=== PATIENT | female | born 1955 | race Caucasian/White ===

== ENCOUNTER 2018-01-31 14:02 | Emergency (ER) | payer BC, MEDICARE ==
[2018-01-31 14:32] LABS: #Basophils 0.1 thou/uL (0.0-0.2); #Eosinphils 0.4 thou/uL (0.0-0.7); #Lymphocytes 2.3 thou/uL (1.20-3.40); #Monocytes 0.4 thou/uL (0.11-0.59); #Neutrophils 3.3 thou/uL (1.40-6.50); %Basophils 0.8 % (0.0-1.0); %Eosinophils 6.1 % (0.0-10.0); %Lymphocytes 35.3 % (21.0-51.0); %Monocytes 6.8 % (0.0-10.0); Hemoglobin 12.4 g/dL (12.0-16.0); Mean Corpuscular HGB CONC 35.6 g/dL (32.0-36.0); Mean Corpuscular Volume 98.3 fl (81.0-99.0); Mean Platelet Volume 8.6 fL (7.4-10.4); Platelet Count 224 thou/uL (130-400); RBC Distribution Width 11.6 % (11.5-14.5); Red Blood Cell (RBC) Count 3.53 mill/uL (4.20-5.40); White Blood Cell (WBC) Count 6.5 thou/uL (4.8-10.8)
[2018-01-31 14:57] LABS: ALT (SGPT) 14 U/L (8-55); AST (SGOT) 19 U/L (5-34); Albumin 4.5 g/dL (3.4-4.8); Alkaline Phosphatase 85 U/L (40-150); Anion Gap 12 mmol/L (10-20); BUN (Urea Nitrogen) 27 mg/dL (9.8-20.1); Bilirubin, Total 0.5 mg/dL (0.2-1.2); Calc. Creatinine Clearance 0 mL/min (70-130); Calcium 9.8 mg/dL (7.8-10.44); Carbon Dioxide 26 mmol/L (23-31); Chloride 106 mmol/L (98-107); Estimated GFR-MDRD 53; Globulin 2.7 g/dL (2.4-3.5); Glucose 91 mg/dL (80-115); Protein, Total 7.2 g/dL (6.0-8.3); Sodium 141 mmol/L (136-145)
[2018-01-31 15:01] LABS: CKMB 1.6 ng/mL (0-6.6); Troponin I Less than 0.010 ng/mL (< 0.028)
--- NOTE | 2018-01-31 15:01 | RAD ---
PORTABLE UPRIGHT FRONTAL CHEST RADIOGRAPH: Date: 01-31-18 Comparison: None. History: Shortness of breath. Chest discomfort. Chest heaviness. FINDINGS: Stent material overlies the left neck. The lungs appear hyperinflated with mild diffuse increased kiara ear interstitial density noted bilaterally. There is atherosclerotic calcification of the aortic arch . No pneumothorax, pleural fluid, focal consolidation or alveolar edema. IMPRESSION: Interstitial prominence and pulmonary hyperinflation. POS: [facility]
[2018-01-31] MEDS ORDERED: Potassium Chloride 20 MEQ TAB ONE (16:09)
== END 2018-01-31 16:52 | disposition home or self-care (01) ==
LOC: ERS 14:02
DX: R07.89 Other chest pain (principal); E78.5 Hyperlipidemia, unspecified; I10 Essential (primary) hypertension; I25.2 Old myocardial infarction; F17.210 Nicotine dependence, cigarettes, uncomplicated
CPT/HCPCS: 71045; 80053; 82553; 84484; 85025; 85379; 93005

== ENCOUNTER 2018-06-07 08:13 | Outpatient (CLI) | payer BC ==
--- NOTE | 2018-06-07 11:25 | MRI ---
MRI LUMBAR SPINE WITHOUT CONTRAST: Date: 06/07/18 HISTORY: M54.5 low back pain. COMPARISON: None. FINDINGS: The aortic contour is nonaneurysmal. No hydroureteronephrosis. No retroperitoneal adenopathy. Paraspinal musculature is symmetric. No marrow infiltrative process. The conus medullaris terminates at the superior end plate of L1. There is a lumbosacral transitional vertebra with enlarged left L5 transverse process and anomalous articulation of the sacrum. This will be determined as L5 for the purposes of this examination. Levels are as follows: T12-L1: There is a left paracentral and subforaminal posterior disc osteophyte complex. No significant neural foraminal or spinal canal narrowing. L1-2: Mild disc desiccation. Small broad based posterior disc osteophyte complex. Minimal effacement of the ventral CSF space. No significant neural foraminal or spinal canal narrowing. L2-3: Moderate disc desiccation. There is a right subforaminal lateral recess posterior disc osteophyte com plex causing mild right-sided neural foraminal narrowing. Moderate facet arthrosis. There is also a l eft subforaminal posterior disc osteophyte complex causing moderate left-sided neural foraminal narro wing. L3-4: Moderate disc desiccation. There is a broad based posterior disc osteophyte complex. Mild bilateral n eural foraminal narrowing. Moderate facet arthrosis. L4-5: There is anterolisthesis, predominantly right-sided, 4.0 mm. No significant left-sided anterolisthesi s is present. There is asymmetric right, much worse than left, facet arthropathy. Moderate to severe right-sided neural foraminal narrowing. Mild left-sided neural foraminal narrowing. Severe disc desic cation and near complete height loss. L5-S1: There is moderate to severe right-sided and moderate left-sided facet arthropathy. Mild disc desiccat ion. No significant neural foraminal or spinal canal narrowing. IMPRESSION: 1. Right 2A lumbosacral transitional vertebra. 2. Degenerative 5.0 mm right-sided L4 over L5 anterolisthesis due to asymmetric severe facet arthrop athy. There is subsequent moderate to severe right-sided neural foraminal narrowing with abutment of the exiting traversing nerve roots. The left side of the L4-5 disc space is without significant anter olisthesis. POS: [facility]
== END 2018-06-07 08:14 | disposition home or self-care (01) ==
LOC: MRI 08:13
PROVIDERS: ATTEND Neurological Surgery
DX: M54.5 Low back pain (principal); M43.16 Spondylolisthesis, lumbar region; M46.96 Unspecified inflammatory spondylopathy, lumbar region; M99.83 Other biomechanical lesions of lumbar region
CPT/HCPCS: 72148

== ENCOUNTER 2018-07-28 19:35 | Emergency (ER) | payer BC ==
[2018-07-28] MEDS ORDERED: Mag-Al 1200 mg/1200 mg/30 ML UDCUP ONE (20:04)
[2018-07-28] MEDS ORDERED: Lidocaine Viscous Sol 2% 15 ml UD Cup ONE (20:04)
--- NOTE | 2018-07-28 20:54 | RAD ---
CHEST ONE VIEW: HISTORY: A 63-year-old female with a history of syncope, dizziness, and sweating. Previous heart cath. FINDINGS: Heart size is normal. Mild increased linear and interstitial markings bilaterally, stable from prior study. No confluent pneumonia, overt edema, or pleural effusion. IMPRESSION: 1. Mild stable chronic changes. 2. No pneumonia, edema, or other acute process. 3. Atherosclerosis of the aorta. POS: [facility]
[2018-07-28 21:03] LABS: Hemoglobin 10.6 g/dL (12.0-16.0); Mean Corpuscular HGB CONC 34.2 g/dL (32.0-36.0); Mean Corpuscular Hemoglobin 33.4 pg (27.0-31.0); Mean Corpuscular Volume 97.6 fL (78.0-98.0); Mean Platelet Volume 8.6 fL (7.4-10.4); Platelet Count 254 thou/uL (130-400); RBC Distribution Width 11.3 % (11.5-14.5); Red Blood Cell (RBC) Count 3.17 mill/uL (4.20-5.40); White Blood Cell (WBC) Count 10.9 thou/uL (4.8-10.8)
[2018-07-28 21:04] LABS: #Basophils 0.1 thou/uL (0.0-0.2); #Eosinphils 0.3 thou/uL (0.0-0.7); #Lymphocytes 1.7 thou/uL (1.20-3.40); #Monocytes 0.6 thou/uL (0.11-0.59); #Neutrophils 8.2 thou/uL (1.40-6.50); %Basophils 0.5 % (0.0-1.0); %Eosinophils 3.1 % (0.0-10.0); %Lymphocytes 15.2 % (21.0-51.0); %Monocytes 5.4 % (0.0-10.0); %Neutrophils 75.8 % (42.0-75.0)
[2018-07-28 21:25] LABS: ALT (SGPT) 15 U/L (8-55); AST (SGOT) 19 U/L (5-34); Albumin 3.8 g/dL (3.4-4.8); Alkaline Phosphatase 84 U/L (40-150); Anion Gap 14 mmol/L (10-20); BUN (Urea Nitrogen) 29 mg/dL (9.8-20.1); Bilirubin, Total 0.2 mg/dL (0.2-1.2); Calc. Creatinine Clearance 0 mL/min (70-130); Calcium 8.2 mg/dL (7.8-10.44); Carbon Dioxide 18 mmol/L (23-31); Chloride 108 mmol/L (98-107); Estimated GFR-MDRD 40; Globulin 2.8 g/dL (2.4-3.5); Glucose 114 mg/dL (80-115); Magnesium 2.1 mg/dL (1.6-2.6); Potassium 3.7 mmol/L (3.5-5.1); Protein, Total 6.6 g/dL (6.0-8.3); Sodium 136 mmol/L (136-145)
[2018-07-28 21:28] LABS: Troponin I Less than 0.010 ng/mL (< 0.028)
== END 2018-07-28 22:58 | disposition home or self-care (01) ==
LOC: ERS 19:35
DX: R55 Syncope and collapse (principal); E78.5 Hyperlipidemia, unspecified; I10 Essential (primary) hypertension; I25.2 Old myocardial infarction; F17.210 Nicotine dependence, cigarettes, uncomplicated; Z79.82 Long term (current) use of aspirin; Z79.899 Other long term (current) drug therapy
CPT/HCPCS: 36415; 71045; 80053; 83735; 83880; 84484; 85025; 93005; 94760

== ENCOUNTER 2019-04-18 07:46 | Outpatient (CLI) | payer BC ==
--- NOTE | 2019-04-18 09:17 | CT ---
EXAM: CT ABDOMEN AND PELVIS HISTORY: Abdominal pain, left-sided. A left-sided lump found in November. COMPARISON: None. Procedure: Multiple contiguous axial images were obtained and a CT of the abdomen and pelvis with IV contrast. C oronal reformats were performed. FINDINGS: Lower Chest: within normal limits. Vessels: Normal caliber aorta. Atherosclerotic disease is noted. Heart: Normal heart size. No significant pericardial fluid Abdomen: Portal vein:Patent Gallbladder: No calcified gallstones. Normal caliber wall. Liver: within normal limits. Pancreas: within normal limits. Spleen: within normal limits. Adrenals: Right adrenal gland is unremarkable. 0.8 cm left adrenal nodule. Kidneys: Symmetric enhancement kidneys. Nonobstructing 1 to 2 mm calculi in the left renal pelvis. No evidence of left-sided obstructive uropathy. No evidence of right-sided obstructive uropathy. Peritoneum: No ascites or free air, no fluid collection. Bowel: Normal caliber. Mesentery and Retroperitoneum: No enlarged mesenteric or retroperitoneal lymph nodes. Abdominal Wall: Umbilical hernia containing mesenteric fat is noted. Pelvis: Reproductive Organs: Surgically absent uterus Pelvis: within normal limits. Bladder: within normal limits. Bones: There are no lytic or blastic lesions in the osseous structures. Pseudoarthrosis of the left L 5 ala with the sacrum. IMPRESSION: 1. No evidence of acute intraabdominal\pelvic abnormality. 2. Nonobstructing left intrarenal calculi 3. Left adrenal nodule as described above. Nonemergent adrenal mass protocol CT or abdomen MRI perfor med.
== END 2019-04-18 07:47 | disposition home or self-care (01) ==
LOC: CT 07:46
PROVIDERS: ATTEND Family Medicine
DX: R10.84 Generalized abdominal pain (principal); N20.0 Calculus of kidney; E27.8 Other specified disorders of adrenal gland
CPT/HCPCS: 74177

== ENCOUNTER 2019-07-25 10:57 | Emergency (ER) | payer OTHER ==
--- NOTE | 2019-07-25 11:32 | RAD ---
Exam: Chest one view HISTORY:Chest pain Comparison: 07/28/2018 FINDINGS: Lungs: Diffuse interstitial prominence bilaterally Cardiac silhouette:Stable Pulmonary vessels: Normal Pleural Spaces: Clear Pneumothorax: None Osseous abnormalities: None of acuity. IMPRESSION: Diffuse interstitial opacities which may be on the basis of interstitial lung disease, or edema. Correlate clinically.
[2019-07-25 11:33] LABS: #Basophils 0.1 thou/uL (0.0-0.2); #Eosinphils 0.1 thou/uL (0.0-0.7); #Lymphocytes 1.3 thou/uL (1.20-3.40); #Monocytes 0.4 thou/uL (0.11-0.59); #Neutrophils 4.8 thou/uL (1.40-6.50); %Basophils 0.8 % (0.0-1.0); %Eosinophils 1.2 % (0.0-10.0); %Lymphocytes 20.2 % (21.0-51.0); %Monocytes 5.3 % (0.0-10.0); %Neutrophils 72.5 % (42.0-75.0); Hemoglobin 12.4 g/dL (12.0-16.0); Mean Corpuscular HGB CONC 34.4 g/dL (32.0-36.0); Mean Corpuscular Hemoglobin 34.1 pg (27.0-31.0); Mean Corpuscular Volume 99.1 fL (78.0-98.0); Mean Platelet Volume 8.6 fL (7.4-10.4); Platelet Count 259 thou/uL (130-400); RBC Distribution Width 12.5 % (11.5-14.5); Red Blood Cell (RBC) Count 3.64 mill/uL (4.20-5.40); White Blood Cell (WBC) Count 6.6 thou/uL (4.8-10.8)
[2019-07-25 12:06] LABS: ALT (SGPT) 15 U/L (8-55); AST (SGOT) 18 U/L (5-34); Albumin 4.5 g/dL (3.4-4.8); Alkaline Phosphatase 84 U/L (40-110); Anion Gap 13 mmol/L (10-20); BUN (Urea Nitrogen) 14 mg/dL (9.8-20.1); Bilirubin, Total 0.3 mg/dL (0.2-1.2); Calc. Creatinine Clearance 0 mL/min (70-130); Calcium 9.3 mg/dL (7.8-10.44); Carbon Dioxide 26 mmol/L (23-31); Chloride 97 mmol/L (98-107); Estimated GFR-MDRD 71; Globulin 2.9 g/dL (2.4-3.5); Glucose 95 mg/dL (80-115); Lipase 17 U/L (8-78); Potassium 4.1 mmol/L (3.5-5.1); Protein, Total 7.4 g/dL (6.0-8.3); Sodium 132 mmol/L (136-145)
[2019-07-25 14:08] LABS: Troponin I Less than 0.010 ng/mL (< 0.028)
== END 2019-07-25 15:56 | disposition home or self-care (01) ==
LOC: ERS 10:57
DX: R07.9 Chest pain, unspecified (principal); E78.00 Pure hypercholesterolemia, unspecified; I25.2 Old myocardial infarction; I10 Essential (primary) hypertension; Z79.899 Other long term (current) drug therapy
CPT/HCPCS: 36415; 71045; 80053; 83690; 84484; 85025; 93005

== ENCOUNTER 2020-06-03 09:25 | Outpatient (CLI) | payer OTHER ==
--- NOTE | 2020-06-03 10:27 | MMO ---
Bilateral MAMMO Bilat Screen [facility]. CLINICAL HISTORY: Patient is 65 years old and is seen for screening. The patient has no family history of breast cancer. The patient has no personal history of cancer. The patient has a history of bilateral Implants. VIEWS: The views performed were: bilateral craniocaudal with tomosynthesis; bilateral mediolateral oblique with tomosynthesis; and bilateral Implant displaced. FILMS COMPARED: The present examination has been compared to a prior imaging study performed at [facility] on 04/05/2018. This study has been interpreted with the assistance of computer-aided detection. MAMMOGRAM FINDINGS: There are scattered fibroglandular densities. There are stable benign appearing calcifications seen in both breasts. There are no suspicious masses, suspicious calcifications, or new areas of architectural distortion. IMPRESSION: THERE IS NO MAMMOGRAPHIC EVIDENCE OF MALIGNANCY. A ROUTINE FOLLOW-UP MAMMOGRAM IN 1 YEAR IS RECOMMENDED. THE RESULTS OF THIS EXAM WERE SENT TO THE PATIENT. ACR BI-RADS Category 2 - Benign finding MAMMOGRAPHY NOTE: 1. A negative mammogram report should not delay a biopsy if a dominant of clinically suspicious mass is present. 2. Approximately 10% to 15% of breast cancers are not detected by mammography. 3. Adenosis and dense breasts may obscure an underlying neoplasm. Reported by: RICHARD DENIS MD Electonically Signed: [id number]
--- NOTE | 2020-06-03 13:43 | BD ---
DEXA BONE DENSITY STUDY: HISTORY: Postmenopausal. FINDINGS: Lumbar Spine: BMD (g/cm2) L1 0.986 T-Score: +0.0 L2 1.055 T-Score: +0.2 L3 1.049 T-Score: -0.3 L4 1.195 T-Score: +1.2 L1-L4 1.078 T-Score: +0.3 Femoral Neck: 0.555 T-Score: -2.6 Total Femur: 0.761 T-Score: -1.5 Impression: Osteoporosis of the left femoral neck. Normal bone mineral density of the lumbar spine. POS: [facility]
== END 2020-06-03 09:26 | disposition home or self-care (01) ==
LOC: BICMAMMO 09:25
PROVIDERS: ATTEND Registered Nurse
DX: Z12.31 Encounter for screening mammogram for malignant neoplasm of breast (principal); Z78.0 Asymptomatic menopausal state; M81.0 Age-related osteoporosis without current pathological fracture; Z98.82 Breast implant status
CPT/HCPCS: 77063; 77067; 77080

== ENCOUNTER 2020-12-21 13:12 | Emergency (ER) | payer BC, MEDICARE ==
[2020-12-21 13:49] LABS: #Eosinphils 0.2 thou/uL (0.0-0.7); #Lymphocytes 2.1 thou/uL (1.20-3.40); #Monocytes 0.4 thou/uL (0.11-0.59); #Neutrophils 3.3 thou/uL (1.40-6.50); %Basophils 0.8 % (0.0-1.0); %Lymphocytes 33.9 % (21.0-51.0); %Neutrophils 54.3 % (42.0-75.0); Hemoglobin 12.8 g/dL (12.0-16.0); Mean Corpuscular HGB CONC 33.7 g/dL (32.0-36.0); Mean Corpuscular Hemoglobin 33.4 pg (27.0-31.0); Mean Corpuscular Volume 99.2 fL (78.0-98.0); Mean Platelet Volume 8.4 fL (7.4-10.4); Platelet Count 278 thou/uL (130-400); RBC Distribution Width 12.2 % (11.5-14.5); Red Blood Cell (RBC) Count 3.82 mill/uL (4.20-5.40); White Blood Cell (WBC) Count 6.1 thou/uL (4.8-10.8)
[2020-12-21 14:11] LABS: ALT (SGPT) 16 U/L (8-55); AST (SGOT) 17 U/L (5-34); Albumin 4.4 g/dL (3.4-4.8); Alkaline Phosphatase 92 U/L (40-110); Anion Gap 16 mmol/L (10-20); BUN (Urea Nitrogen) 14 mg/dL (9.8-20.1); Bilirubin, Total 0.4 mg/dL (0.2-1.2); Calc. Creatinine Clearance 0 mL/min (70-130); Calcium 9.9 mg/dL (7.8-10.44); Carbon Dioxide 24 mmol/L (23-31); Chloride 100 mmol/L (98-107); Glucose 100 mg/dL (80-115); Potassium 3.7 mmol/L (3.5-5.1); Protein, Total 7.4 g/dL (5.8-8.1); Sodium 136 mmol/L (136-145)
[2020-12-21] MEDS ORDERED: Aspirin Chewable 81 MG TAB ONE (14:48)
== END 2020-12-21 17:51 | disposition left against medical advice (07) ==
LOC: ERS 13:12
DX: R07.9 Chest pain, unspecified (principal); I25.10 Atherosclerotic heart disease of native coronary artery without angina pectoris; F17.210 Nicotine dependence, cigarettes, uncomplicated; I25.2 Old myocardial infarction; E78.5 Hyperlipidemia, unspecified; E78.00 Pure hypercholesterolemia, unspecified; I10 Essential (primary) hypertension; Z79.82 Long term (current) use of aspirin; Z79.899 Other long term (current) drug therapy
CPT/HCPCS: 71045; 80053; 84484; 85025; 93005; 94760

== ENCOUNTER 2021-01-15 21:35 | Inpatient (IN) | payer BC, MEDICARE ==
[~2021-01-15 21:35] MED LIST: Iopamidol-370 76% 500 ML 1 ML ONE
[2021-01-15 21:59] LABS: #Eosinphils 0.1 thou/uL (0.0-0.7); #Lymphocytes 1.6 thou/uL (1.20-3.40); #Monocytes 0.4 thou/uL (0.11-0.59); #Neutrophils 4.7 thou/uL (1.40-6.50); %Basophils 0.6 % (0.0-1.0); %Eosinophils 1.3 % (0.0-10.0); %Monocytes 6.1 % (0.0-10.0); Mean Corpuscular HGB CONC 34.9 g/dL (32.0-36.0); Mean Corpuscular Hemoglobin 33.8 pg (27.0-31.0); Mean Corpuscular Volume 96.8 fL (78.0-98.0); Mean Platelet Volume 8.5 fL (7.4-10.4); Platelet Count 237 thou/uL (130-400); RBC Distribution Width 11.8 % (11.5-14.5); Red Blood Cell (RBC) Count 3.55 mill/uL (4.20-5.40); White Blood Cell (WBC) Count 6.8 thou/uL (4.8-10.8)
[2021-01-15] MEDS ORDERED: Ondansetron PF 4 MG/2 ML Vial ONE ×2 (22:10→23:47)
[2021-01-15] MEDS ORDERED: Ketorolac Tromethamine 30 MG/ML VIAL ONE (22:10)
[2021-01-15 22:20] LABS: ALT (SGPT) 15 U/L (8-55); AST (SGOT) 16 U/L (5-34); Albumin 4.1 g/dL (3.4-4.8); Alkaline Phosphatase 85 U/L (40-110); Anion Gap 16 mmol/L (10-20); BUN (Urea Nitrogen) 9 mg/dL (9.8-20.1); Bilirubin, Total 0.5 mg/dL (0.2-1.2); Calc. Creatinine Clearance 0 mL/min (70-130); Carbon Dioxide 22 mmol/L (23-31); Chloride 90 mmol/L (98-107); Globulin 2.7 g/dL (2.4-3.5); Glucose 118 mg/dL (80-115); Lipase 14 U/L (8-78); Potassium 3.3 mmol/L (3.5-5.1); Protein, Total 6.8 g/dL (5.8-8.1); Sodium 125 mmol/L (136-145)
[2021-01-15] MEDS ORDERED: Morphine 4 MG/ML VIAL ONE ×2 (22:37→23:44)
[2021-01-15] MEDS ORDERED: cefTRIAXone\\ROCEPHIN 2 GM VIAL ONE (23:16)
[2021-01-15] MEDS ORDERED: NS 0.9% w/ 40 MEQ KCL 1,000 ML IV SCH (23:45)
[2021-01-15] MEDS ORDERED: Ondansetron PF 4 MG/2 ML Vial IVP PRN (23:49)
[2021-01-15] MEDS ORDERED: Bisacodyl 10 MG SUPP PR PRN (23:49)
[2021-01-15] MEDS ORDERED: Acetaminophen 325 MG TAB PO PRN (23:49)
[2021-01-16] MEDS ORDERED: Morphine 2 MG/ML VIAL SLOW IVP PRN (00:01)
[2021-01-16] MEDS ORDERED: hydrALAZINE 20 MG/ML VIAL SLOW IVP PRN (00:01)
[2021-01-16 00:27] LABS: Bacteria/HPF None Seen HPF (None Seen); Bilirubin Negative (Negative); Blood, Urine Negative (Negative); Clarity Clear (Clear); Glucose, Urine (Dipstick) Normal (Negative); Ketone, Urine 10 mg/dL (Negative); Leukocyte Negative Leu/uL (Negative); Nitrite Negative (Negative); Protein, Urine (Dipstick) Negative (Neg-Trace); RBC/HPF 0-3 HPF (0-3); Specific Gravity, Urine 1.033 (1.002-1.036); Squamous Epithelial None Seen HPF (0-3); Urobilinogen Normal mg/dL (Less than 2); WBC/HPF 0-3 HPF (0-3); pH, Urine 6.5 (5.0-9.0)
[2021-01-16 01:16] VITALS: BMI 26.4
[2021-01-16] MEDS: HYDROcodone/Acetaminophen 5/325 mg Tablet PO PRN ×3 (01:22→16:31)
[2021-01-16] MEDS: Nicotine 14 MG PATCH TD SCH (01:23)
[2021-01-16 01:24] LABS: Hemoglobin 11.2 g/dL (12.0-16.0); Platelet Count 229 thou/uL (130-400)
[2021-01-16 01:40] LABS: Lactic Acid 0.7 mmol/L (0.5-2.2)
[2021-01-16 01:43] LABS: Potassium, Urine 45.9 mmol/L
[2021-01-16 03:16] LABS: SARS-CoV-2 NAA Rapid Test Not Detected (NotDetected)
[2021-01-16 06:32] LABS: ALT (SGPT) 13 U/L (8-55); AST (SGOT) 15 U/L (5-34); Albumin 3.6 g/dL (3.4-4.8); Alkaline Phosphatase 74 U/L (40-110); Anion Gap 13 mmol/L (10-20); BUN (Urea Nitrogen) 8 mg/dL (9.8-20.1); Bilirubin, Total 0.3 mg/dL (0.2-1.2); Calc. Creatinine Clearance 71 mL/min (70-130); Calcium 8.2 mg/dL (7.8-10.44); Carbon Dioxide 24 mmol/L (23-31); Chloride 95 mmol/L (98-107); Globulin 2.4 g/dL (2.4-3.5); Glucose 102 mg/dL (80-115); Potassium 3.9 mmol/L (3.5-5.1); Sodium 128 mmol/L (136-145)
[2021-01-16 06:35] LABS: Hemoglobin 11.4 g/dL (12.0-16.0); Platelet Count 243 thou/uL (130-400)
[2021-01-16] MEDS: Heparin 10,000 UNITS/ 10 ML VIAL SLOW IVP SCH ×2 (07:19→20:06)
[2021-01-16] MEDS: Heparin 25,000 units/D5W 500 ML IVPB SCH (07:20)
[2021-01-16] MEDS: Morphine 4 MG/ML VIAL SLOW IVP PRN ×2 (07:31→12:27)
[2021-01-16] MEDS ORDERED: Enoxaparin Sodium 40 MG/0.4 ML SYRINGE SC SCH (09:00)
[2021-01-16 09:01] LABS: Magnesium 1.7 mg/dL (1.6-2.6); Phosphorus 3.5 mg/dL (2.3-4.7)
[2021-01-16] MEDS ORDERED: Magnesium 2 GM/50 ML 2 GM in Premix Bag 1 BAG IVPB SCH (09:45)
[2021-01-16] MEDS ORDERED: Tolvaptan 15 MG TAB PO SCH (11:30)
[2021-01-16] MEDS ORDERED: TOLVAPTAN 30 MG TAB PO SCH (12:15)
[2021-01-16 14:25] LABS: Lactic Acid 0.6 mmol/L (0.5-2.2)
[2021-01-16 14:30] LABS: Anion Gap 12 mmol/L (10-20); BUN (Urea Nitrogen) 7 mg/dL (9.8-20.1); Calc. Creatinine Clearance 80 mL/min (70-130); Calcium 8.5 mg/dL (7.8-10.44); Carbon Dioxide 24 mmol/L (23-31); Chloride 99 mmol/L (98-107); Glucose 94 mg/dL (80-115); Potassium 3.5 mmol/L (3.5-5.1); Sodium 131 mmol/L (136-145)
[2021-01-16] MEDS ORDERED: Morphine 4 MG/ML VIAL SLOW IVP PRN (14:58)
[2021-01-16] MEDS ORDERED: Lisinopril 20 MG TAB PO SCH (17:00)
[2021-01-16] MEDS ORDERED: Aspirin 325 mg Enteric Coated Tablet PO SCH (17:00)
[2021-01-16] MEDS ORDERED: Aspirin 81 mg Enteric Coated Tablet PO SCH (17:00)
[2021-01-16] MEDS ORDERED: D5 0.9% NS w/ 20 mEq KCl 1,000 ML IV SCH (17:00)
[2021-01-16] MEDS ORDERED: Morphine 4 MG/ML VIAL SLOW IVP SCH (17:15)
[2021-01-16] MEDS: Piperacillin/Tazobactam 3.375 GM in Sodium Chloride 0.9% 100 ML IVPB SCH ×2 (17:25→23:38)
[2021-01-16] MEDS ORDERED: Polyethylene Glycol 3350 17 GM Packet PO SCH (18:00)
[2021-01-16] MEDS ORDERED: Fentanyl CADD 100 ML IVPB SCH (18:30)
[2021-01-16] MEDS ORDERED: NS 0.9% w/ 20 MEQ KCL 1,000 ML/1,000 ML BAG IV SCH (19:00)
[2021-01-16 19:10] LABS: Anion Gap 15 mmol/L (10-20); BUN (Urea Nitrogen) 6 mg/dL (9.8-20.1); Calc. Creatinine Clearance 80 mL/min (70-130); Calcium 9.1 mg/dL (7.8-10.44); Carbon Dioxide 21 mmol/L (23-31); Chloride 103 mmol/L (98-107); Glucose 110 mg/dL (80-115); Potassium 3.5 mmol/L (3.5-5.1); Sodium 135 mmol/L (136-145)
[2021-01-16 19:15] LABS: Troponin I 0.011 ng/mL (< 0.028)
[2021-01-16] MEDS: Pantoprazole 40 MG VIAL IVP SCH (20:56)
[2021-01-16] MEDS: Rosuvastatin 10 MG TAB PO SCH (20:56)
[2021-01-17 02:31] LABS: #Basophils 0.1 thou/uL (0.0-0.2); #Eosinphils 0.1 thou/uL (0.0-0.7); #Lymphocytes 2.6 thou/uL (1.20-3.40); #Monocytes 0.5 thou/uL (0.11-0.59); #Neutrophils 3.6 thou/uL (1.40-6.50); %Basophils 1.2 % (0.0-1.0); %Eosinophils 1.5 % (0.0-10.0); %Lymphocytes 37.9 % (21.0-51.0); %Monocytes 6.6 % (0.0-10.0); %Neutrophils 52.9 % (42.0-75.0); Hemoglobin 11.7 g/dL (12.0-16.0); Mean Corpuscular HGB CONC 35.9 g/dL (32.0-36.0); Mean Corpuscular Hemoglobin 35.6 pg (27.0-31.0); Mean Corpuscular Volume 99.1 fL (78.0-98.0); Mean Platelet Volume 8.7 fL (7.4-10.4); Platelet Count 243 thou/uL (130-400); RBC Distribution Width 12.2 % (11.5-14.5); Red Blood Cell (RBC) Count 3.29 mill/uL (4.20-5.40); White Blood Cell (WBC) Count 6.9 thou/uL (4.8-10.8)
[2021-01-17] MEDS: Nicotine 14 MG PATCH TD SCH ×2 (02:59→23:26)
[2021-01-17 03:02] LABS: Lactic Acid 0.9 mmol/L (0.5-2.2)
[2021-01-17 03:06] LABS: ALT (SGPT) 11 U/L (8-55); AST (SGOT) 15 U/L (5-34); Albumin 3.6 g/dL (3.4-4.8); Alkaline Phosphatase 79 U/L (40-110); Anion Gap 12 mmol/L (10-20); BUN (Urea Nitrogen) 6 mg/dL (9.8-20.1); Bilirubin, Total 0.3 mg/dL (0.2-1.2); Calc. Creatinine Clearance 74 mL/min (70-130); Calcium 8.7 mg/dL (7.8-10.44); Carbon Dioxide 24 mmol/L (23-31); Chloride 107 mmol/L (98-107); Globulin 2.2 g/dL (2.4-3.5); Glucose 100 mg/dL (80-115); Protein, Total 5.8 g/dL (5.8-8.1); Sodium 139 mmol/L (136-145)
[2021-01-17] MEDS: Piperacillin/Tazobactam 3.375 GM in Sodium Chloride 0.9% 100 ML IVPB SCH ×4 (05:33→23:25)
[2021-01-17] MEDS: Pantoprazole 40 MG VIAL IVP SCH ×2 (09:35→20:57)
[2021-01-17] MEDS: Saccharomyces boulardii 250 MG CAP PO SCH (09:35)
[2021-01-17] MEDS: Lisinopril 20 MG TAB PO SCH (09:35)
[2021-01-17] MEDS: Heparin 25,000 units/D5W 500 ML IVPB SCH (10:25)
[2021-01-17] MEDS: Heparin 10,000 UNITS/ 10 ML VIAL SLOW IVP SCH (11:45)
[2021-01-17] MEDS: Aspirin 81 mg Enteric Coated Tablet PO SCH (20:57)
[2021-01-17] MEDS: Rosuvastatin 10 MG TAB PO SCH (20:57)
[2021-01-17] MEDS ORDERED: Aspirin 325 mg Enteric Coated Tablet PO SCH (21:00)
[2021-01-18 00:38] LABS: Hemoglobin 10.4 g/dL (12.0-16.0); Platelet Count 222 thou/uL (130-400)
[2021-01-18] MEDS: Piperacillin/Tazobactam 3.375 GM in Sodium Chloride 0.9% 100 ML IVPB SCH ×4 (04:45→23:39)
[2021-01-18 05:00] LABS: #Eosinphils 0.2 thou/uL (0.0-0.7); #Lymphocytes 2.6 thou/uL (1.20-3.40); #Monocytes 0.6 thou/uL (0.11-0.59); #Neutrophils 3.2 thou/uL (1.40-6.50); %Basophils 0.5 % (0.0-1.0); %Eosinophils 3.2 % (0.0-10.0); %Lymphocytes 38.8 % (21.0-51.0); %Monocytes 9.4 % (0.0-10.0); %Neutrophils 48.1 % (42.0-75.0); Hemoglobin 10.9 g/dL (12.0-16.0); Mean Corpuscular HGB CONC 32.7 g/dL (32.0-36.0); Mean Corpuscular Hemoglobin 32.4 pg (27.0-31.0); Mean Platelet Volume 9.1 fL (7.4-10.4); Platelet Count 228 thou/uL (130-400); RBC Distribution Width 12.3 % (11.5-14.5); Red Blood Cell (RBC) Count 3.38 mill/uL (4.20-5.40); White Blood Cell (WBC) Count 6.6 thou/uL (4.8-10.8)
[2021-01-18 05:23] LABS: ALT (SGPT) 10 U/L (8-55); AST (SGOT) 15 U/L (5-34); Albumin 3.6 g/dL (3.4-4.8); Alkaline Phosphatase 63 U/L (40-110); Anion Gap 11 mmol/L (10-20); BUN (Urea Nitrogen) 6 mg/dL (9.8-20.1); Bilirubin, Total 0.4 mg/dL (0.2-1.2); Calc. Creatinine Clearance 77 mL/min (70-130); Calcium 8.9 mg/dL (7.8-10.44); Carbon Dioxide 25 mmol/L (23-31); Chloride 105 mmol/L (98-107); Globulin 2.2 g/dL (2.4-3.5); Glucose 91 mg/dL (80-115); Potassium 3.8 mmol/L (3.5-5.1); Protein, Total 5.8 g/dL (5.8-8.1); Sodium 137 mmol/L (136-145)
[2021-01-18] MEDS: Saccharomyces boulardii 250 MG CAP PO SCH (07:51)
[2021-01-18] MEDS: Lisinopril 20 MG TAB PO SCH (07:51)
[2021-01-18] MEDS: Pantoprazole 40 MG VIAL IVP SCH ×2 (07:52→20:36)
[2021-01-18] MEDS: HYDROcodone/Acetaminophen 5/325 mg Tablet PO SCH ×3 (12:02→23:39)
[2021-01-18] MEDS: tiZANidine HCl 4 MG TAB PO SCH ×2 (15:31→20:35)
[2021-01-18] MEDS: Senokot S 8.6-50 MG TAB PO SCH (20:34)
[2021-01-18] MEDS: Aspirin 81 mg Enteric Coated Tablet PO SCH (20:34)
[2021-01-18] MEDS: Rosuvastatin 10 MG TAB PO SCH (20:34)
[2021-01-18] MEDS: Nicotine 14 MG PATCH TD SCH (23:39)
[2021-01-19] MEDS: HYDROcodone/Acetaminophen 5/325 mg Tablet PO SCH ×3 (05:30→18:13)
[2021-01-19] MEDS: Piperacillin/Tazobactam 3.375 GM in Sodium Chloride 0.9% 100 ML IVPB SCH ×3 (05:37→18:12)
[2021-01-19] MEDS: tiZANidine HCl 4 MG TAB PO SCH ×2 (08:38→16:19)
[2021-01-19] MEDS: Lisinopril 20 MG TAB PO SCH (08:50)
[2021-01-19] MEDS: Saccharomyces boulardii 250 MG CAP PO SCH (08:50)
[2021-01-19] MEDS: Pantoprazole 40 MG VIAL IVP SCH (08:51)
[2021-01-19] MEDS: Senokot S 8.6-50 MG TAB PO SCH (08:51)
[2021-01-19] MEDS ORDERED: Lidocaine 5% Patch TD SCH (09:00)
[2021-01-19 17:31] VITALS: BP 187/75; TEMP 97.8
[2021-01-19] MEDS ORDERED: hydrALAZINE 25 MG TAB PO SCH (18:00)
[2021-01-19] MEDS ORDERED: Transdermal Patch Removal TOP SCH (21:00)
== END 2021-01-19 18:40 | disposition home or self-care (01) | DRG 644 ==
LOC: ERS 21:35 → T4-A 23:31 → OBSVTOIN 01-16 09:33 → 2NO 01-16 18:05
PROVIDERS: ADMIT Internal Medicine; ATTEND Internal Medicine
DX: E22.2 Syndrome of inappropriate secretion of antidiuretic hormone (principal); K55.1 Chronic vascular disorders of intestine; I10 Essential (primary) hypertension; E78.5 Hyperlipidemia, unspecified; G89.29 Other chronic pain; I25.10 Atherosclerotic heart disease of native coronary artery without angina pectoris; E87.6 Hypokalemia; R10.9 Unspecified abdominal pain; E83.42 Hypomagnesemia; M48.061 Spinal stenosis, lumbar region without neurogenic claudication; Z87.442 Personal history of urinary calculi; Z90.710 Acquired absence of both cervix and uterus; Z87.891 Personal history of nicotine dependence
CPT/HCPCS: 36415; 36416; 51702; 72148; 74177; 80053; 81001; 83605; 83690; 83735; 83930; 83935; 84100; 84133; 84300; 84443; 84484; 84550; 85014; 85018; 85025; 85049; 85730; 96365; 96372; 96375; 96376; C9113; G0378; J0360; J0696; J1644; J1885; J2270; J2405; J2543; J3010; J3475; J3480; J3490; Q9967; U0002

== ENCOUNTER 2021-06-19 10:02 | Outpatient (CLI) | payer BC, MEDICARE | END 2021-06-19 10:03 | disposition home or self-care (01) | LOC: BICMAMMO 10:02 | PROVIDERS: ATTEND Registered Nurse | DX: Z12.31 Encounter for screening mammogram for malignant neoplasm of breast (principal); Z98.82 Breast implant status | CPT/HCPCS: 77063; 77067 ==

== ENCOUNTER 2022-12-14 10:27 | Outpatient (CLI) | payer MEDICARE | END 2022-12-14 10:28 | disposition home or self-care (01) | LOC: BICCT 10:27 | PROVIDERS: ATTEND Registered Nurse | DX: Z12.2 Encounter for screening for malignant neoplasm of respiratory organs (principal); F17.210 Nicotine dependence, cigarettes, uncomplicated | CPT/HCPCS: 71271 ==

== ENCOUNTER 2024-04-26 12:53 | Outpatient (CLI) | payer MEDICARE | END 2024-04-26 12:54 | disposition home or self-care (01) | LOC: BICMAMMO 12:53 | PROVIDERS: ATTEND Registered Nurse | DX: Z12.31 Encounter for screening mammogram for malignant neoplasm of breast (principal); Z98.82 Breast implant status | CPT/HCPCS: 77063; 77067 ==

== ENCOUNTER 2025-07-18 12:31 | Outpatient (CLI) | payer MEDICARE | END 2025-07-18 12:32 | disposition home or self-care (01) | LOC: BICMAMMO 12:31 | PROVIDERS: ATTEND Thoracic Surgery (Cardiothoracic Vascular Surgery) | DX: Z12.31 Encounter for screening mammogram for malignant neoplasm of breast (principal); Z78.0 Asymptomatic menopausal state; Z98.82 Breast implant status; M81.0 Age-related osteoporosis without current pathological fracture | CPT/HCPCS: 77063; 77067; 77080 ==